=== PATIENT | male | born 1950 | race Caucasian/White ===

== ENCOUNTER 2022-01-15 18:20 | Emergency (ER) | payer MEDICARE, MEDICAID ==
[~2022-01-15] VITALS: Ht 172.7 cm; Wt 60.0 kg
[2022-01-15 18:30] VITALS: BP 185/102
[2022-01-15 18:45] VITALS: BP 171/92
[2022-01-15] MEDS ORDERED: CLARITHROMYCIN500 MG PO (18:59)
[2022-01-15] MEDS ORDERED: LISINOP/HCTZ1 TAB PO (18:59)
[2022-01-15 19:00] VITALS: BP 150/81
[2022-01-15 19:16] VITALS: BP 174/88
[2022-01-15 19:30] VITALS: BP 151/79
[2022-01-15 19:45] VITALS: BP 130/84
[2022-01-16] MEDS ORDERED: CLARITHROMYCIN500 MG PO (12:05)
[2022-01-16] MEDS ORDERED: LISINOP/HCTZ1 TAB PO (12:05)
== END 2022-01-15 20:16 | disposition home or self-care (01) ==
LOC: ED 18:20
DX: S50.811A Abrasion of right forearm, initial encounter (principal); J44.9 Chronic obstructive pulmonary disease, unspecified; W55.03XA Scratched by cat, initial encounter; Y92.009 Unspecified place in unspecified non-institutional (private) residence as the place of occurrence of the external cause

== ENCOUNTER 2022-10-08 16:01 | Emergency (ER) | payer MEDICARE, MEDICAID ==
[~2022-10-08] VITALS: Ht 172.7 cm; Wt 51.5 kg
[2022-10-08] VITALS (12 sets, daily range): BP systolic 134–167; BP diastolic 73–106
[~2022-10-08 16:01] MED LIST: CLARITHROMYCIN500 MG PO; LISINOP/HCTZ1 TAB PO
[2022-10-08 17:20] LABS: BASO% 0.7 % (0-3); EOS% 3.3 % (0-8); HEMATOCRIT 39.3 % (39.0-50.0); HEMOGLOBIN 12.9 g/dl (14.0-18.0); IMMATURE GRANULOCYTES 0.5 % (0.0-5.0); MEAN CELL VOLUME 92.9 fL CALC (80.0-100.0); MEAN CORPUSCULAR HGB 30.5 pG CALC (26.0-32.0); MEAN CORPUSCULAR HGB CONC 32.8 g/dL CAL (32.0-36.0); MONO% 9.7 % (2-13); NEUT# 5.48 thou/uL (1.82-7.42); NEUT% 71.8 % (42-76); RED BLOOD COUNT 4.23 mill/uL (4.70-6.10); RED CELL DISTRI WIDTH 12.3 % (11.5-15.5)
[2022-10-08] MEDS ORDERED: ALBUTEROL108 MCG/AC (17:21)
[2022-10-08] MEDS ORDERED: AMLODIPINE BESYL5 MG PO (17:22)
[2022-10-08] MEDS ORDERED: LISINOPRIL20 M1 PO (17:23)
[2022-10-08 17:36] LABS: ALBUMIN 4.4 g/dL (3.2-5.0); ALKALINE PHOSPHATASE 68 u/l (38-126); ANION GAP 9 (6-22 (CALC)); BILIRUBIN, TOTAL 0.4 mg/dL (0.2-1.3); BUN 20 mg/dL (8-23); BUN/CREATININE RATIO 30 (12-20 (CALC)); CARBON DIOXIDE 34 mmol/l (22-30); CHLORIDE 104 mmol/l (95-108); CREATININE 0.7 mg/dL (0.7-1.3); GFR FOR AFR.AMER. > 60 ML/MIN (>=60 (CALC)); GFR OTHER RACES > 60 ML/MIN (>=60 (CALC)); SGOT/AST 23 u/l (19-48); SODIUM 144 mmol/l (137-146); TOTAL PROTEIN 7.8 g/dL (6.3-8.2)
[2022-10-08 17:39] LABS: ACT PARTIAL THROMBO TIME 26.5 SECONDS (20.0-32.5); INTERNATIONAL NORMALIZED RATIO 0.9 RATIO (0.7-1.3); PROTHROMBIN TIME 10.1 SECONDS (9.0-12.5)
[2022-10-08 18:00] LABS: URINE BILIRUBIN - DIPSTICK Negative (NEGATIVE); URINE BLOOD DIPSTICK Trace-intact (NEGATIVE); URINE COLOR Yellow; URINE GLUCOSE - DIPSTICK Negative (NEGATIVE); URINE KETONE Negative (NEGATIVE); URINE LEUK ESTERASE Negative (NEGATIVE); URINE NITRITE - DIPSTICK Negative (Negative); URINE PH 7.5 (4.5-8.0); URINE PROTEIN - DIPSTICK Negative (NEG-TRACE); URINE UROBILINOGEN - DIPSTICK 0.2 E.U./dL (0.2)
[2022-10-08] MEDS ORDERED: DOXYCYCLINE100 MG PO (20:07)
--- NOTE | 2022-10-10 10:47 | NUR ---
PRELIMINARY CULTURE RESULTS CALLED TO , 03/02 GROWING GRAM (+) COCCI. PT CONTACTED AND ASKED TO RETURN FOR ADDTIONAL TESTS. PATEINT SAID HE FELT BETTER AND WOULD RETURN IF HE FELT WORSE. WE LET HIM KNOW THE DR WOULD LIKE TO SEE HIM. PHARMACY WILL FOLLOW THE CULTURES FOR FINAL RESULTS.
== END 2022-10-08 20:37 | disposition home or self-care (01) ==
LOC: ED 16:01
PROVIDERS: Family Medicine
DX: R04.2 Hemoptysis (principal); J44.9 Chronic obstructive pulmonary disease, unspecified; Z99.81 Dependence on supplemental oxygen
CPT/HCPCS: Q9967